=== PATIENT | male | born 1945 | race Caucasian/White ===

== ENCOUNTER → 2017-01-10 | Day surgery (SDC) | payer BC ==
[~2017-01-10] VITALS: Ht 174 cm; Wt 88.5 kg
[~2017-01-10] MED LIST: *HYDROmorphone PF 1 MG VIAL PERIprocedural Use ONLY ONE; *morphine SULFATE 8 MG/ML PERIprocedure ONLY ONE; ACETAMINOPHEN 1000 MG/100 ML VIAL IV ONE; ACETAMINOPHEN/HYDROcodone 325 MG/10 MG TAB PO PRN; ALLO300T2 PO; CHLORHEXIDINE GLUCONATE 2 % 1 PACK (2 CLOTHS) TOPICAL PRN; DO NOT ADM ANY ANTICOAGULANT DRUGS PRN; FAMOTIDINE 20 MG/2 ML VIAL ONE; GENTAMICIN SULFATE 80 MG/2 ML VIAL ONE; HYDR-3366 PO; INSULIN HUMAN REGULAR 1,000 UNITS/10 ML VIAL SQ PRN; JALYCAP PO; LACTATED RINGER'S 1000 ML INJ 1,000 ML IV ONE; LACTATED RINGER'S 1000 ML IV PRN; METOPROLOL TARTRATE 25 MG TAB PO PRN; MIDAZOLAM HCL 2 MG/2 ML VIAL ONE; MORPHINE SULFATE 4 MG/ML INJ IV PUSH PRN; ONDANSETRON HCL 4 MG/2 ML VIAL IV PUSH ONE; ONDANSETRON HCL 4 MG/2 ML VIAL IVP PRN; PHENYLEPH/NS 1000 MCG/10 ML SYR IV ONE; POVIDONE IODINE 5% (ANTISEPSIS KIT) 4 APPLICATIONS EACH NARE PRN; POVIDONE IODINE 7.5% SCRUB 118 ML BOTTLE TOPICAL SCH; PROPOFOL 200 MG/20 ML AMP IV ONE; Post-op Orders (for Pharmacy) MISC XX ONE; SODIUM CHLOR 0.9% 250 ML INJ 250 ML ONE; SODIUM CHLORID 0.9% 500 ML IV PRN; VANCOMYCIN 1000 MG/NS 250 ML (for <70 kg) IV SCH; VANCOMYCIN HCL 1000 MG VIAL ONE; ZANA4CAP PO; ceFAZolin 2 GM PREMIX 50 ML IV SCH; ePHEDrine/NS 25 MG/5 ML SYR IV ONE; fentaNYL CITRATE 250 MCG/5 ML AMP ONE
[2017-01-10 06:02] VITALS: BP 153/89; PULSE 79; RESP 18; TEMP 98.4; O2SAT 95
--- NOTE | 2017-01-10 09:35 | PD.OP ---
cc: Wilmar Doe MD Operative Report Date of Surgery: Jan 10, 2017 Preoperative Diagnosis: right midfoot fracture dislocation first through fifth tarsometatarsal joints, right fourth metatarsal fracture Postoperative Diagnosis: Procedure: Open reduction internal fixation right first and second tarsometatarsal joints Open reduction internal fixation right fourth metatarsal fracture Open reduction and pinning of right third and fifth tarsometatarsal joints Surgeon: Wilmar Doe Amr Physician(s): TROY Evans PA-C The surgical procedure was assisted by my physician real estate executive assistant. My P.A. presence was necessary throughout this case for the manipulation and positioning of the surgical extremity. My P.A. was assisting me throughout the duration of this procedure. The skill set of a physician real estate executive assistant was medically necessary to complete this procedure. During the surgical case the computer operations technician was working at the back table and the physician real estate executive assistant was directly assisting me. Operation and Findings: Patient was seen and evaluated in office and found to have displaced midfoot fracture dislocation. Informed consent was obtained after detailed discussion of the risk and benefits of surgery. Operative site was marked. Patient brought to operating room and given IV sedation and general anesthesia. The operative extremity was now prepped with alcohol followed by Hibiclens and draped in usual sterile fashion. IV antibiotics were administered prior to procedure. Time out procedure was now performed to confirm both the patient and procedure. Procedure began with a 3 inch incision over the dorsum of the right midfoot. Incision was centered between the first and second tarsometatarsal joints. Subcutaneous tissue was dissected with Bovie. The EHL tendon was identified. The EHL tendon was now retracted laterally to expose the first tarsometatarsal joint. Next the second tarsometatarsal joint was exposed. The neurovascular bundle was retracted medially. The foot was elevated and the tourniquet was now inflated. The second tarsometatarsal joint was now visualized. Attention was now turned towards reduction. The second tarsometatarsal joint was manipulated. The joint surface was cleaned with curettes. Using a fracture tenaculum the second metatarsal was reduced into anatomic alignment. A K wire was used to hold provisional fixation. The first tarsometatarsal joint was now manually held in anatomic alignment. A K wire was placed across this joint for additional temporary stabilization. Next attention was turned towards the third fourth and fifth tarsometatarsal joints. These joints were still dislocated. A second incision was made centered over the fourth tarsometatarsal joint. Tendons were retracted carefully. The third, fourth, and fifth tarsometatarsal joints were now visualized. There was a fracture at the base of the fourth metatarsal. The third and fourth tarsometatarsal joints were manually reduced. These keyed in anatomic alignment. The fifth tarsometatarsal joint reduced as well. At this point attention was turned towards pinning of the third and fifth tarsometatarsal joints. The joints were held in a reduced position. A K wire was placed at the distal end of the third metatarsal. The K wire was advanced up the metatarsal canal. K wire was now advanced into the lateral cuneiform. Additional K wires placed along the base of the fifth metatarsal and advanced into the cuboid. A second K wire was placed at the base of the fifth metatarsal and advanced through the base of the fourth metatarsal and into the lateral cuneiform to help stabilize the fourth tarsometatarsal joint. Next attention was turned towards the fourth metatarsal. The fracture was reduced. Articular surface was in anatomic alignment. Multiplanar fluoroscopy revealed excellent alignment. Fracture was held in position with a K wire. A 3.5 cortical lag screw was used to compress fracture fragment. Next attention was turned back to the first and second tarsometatarsal joints. These fractures were anatomic alignment. Multiplanar fluoroscopy revealed excellent alignment of these joints. A 3.5 cortical lag screw was now placed in a retrograde fashion from the first metatarsal into the medial cuneiforms. A countersink was used. Good compression was obtained. Using similar technique and additional lag screw was placed in a retrograde fashion from the second metatarsal into the middle cuneiform. A third screw was now placed from the medial cuneiform into the base of the second metatarsal. The K wires from the first and second metatarsals were now removed. Fluoroscopy confirmed excellent alignment of fracture. Incisions were thoroughly irrigated. Tourniquet was released. Hemostasis was obtained. Incisions were now closed with 3-0 Vicryl and 3-0 nylon. Jergens balls were now placed over the 3 K wires. These K wires were now bent and cut appropriately. Sterile dressings were applied with Xeroform, soft roll, and a well molded well-padded splint. Patient was awakened and transferred to recovery in stable condition. Wilmar Doe MD Jan 10, 2017 09:35
--- NOTE | 2017-01-10 09:37 | RADRPT ---
EXAM DATE/TIME: 01/10/2017 08:55 [facility] COMPARISON: FLUOROSCOPY PORTABLE UP TO 1HR, January 10, 2017, 0:00. INDICATIONS : Post-op ORIF right mid-foot fractures. MEDICAL HISTORY : None. SURGICAL HISTORY : None. ENCOUNTER: Initial ACUITY: 1 day PAIN SCORE: Non-responsive. LOCATION: Right Foot. FINDINGS: The examination demonstrates a total of 3 pins and 4 screws across the mid foot. The alignment of the fractures and the Lisfranc joint post fixation is excellent. CONCLUSION: 1. Excellent alignment of the fractures post fixation. Timothy Hussein MD on January 10, 2017 at 9:34 Board Certified Radiologist. This report was verified electronically.
[2017-01-10 13:38] VITALS: BP 129/76; PULSE 78; RESP 16; O2SAT 98
--- NOTE | 2017-01-10 16:26 | EKG ---
Date Performed: 01/10/2017 Time Performed: 06:18:12 PTAGE: 71 years EKG: Sinus rhythm WITH SINUS ARRHYTHMIA NONSPECIFIC T-WAVE ABNORMALITY BORDERLINE ECG NO PREVIOUS TRACING DOCTOR: Santi Mancia Interpretating Date/Time 01/10/2017 16:24:08
--- NOTE | 2017-02-23 17:35 | PD.ORT.PN ---
Subjective Subjective Remarks patient doing well status post open reduction with fixation of right Lisfranc fracture dislocation Objective Procedures right Lisfranc fracture dislocation status post open reduction and fixation and percutaneous pinning Assessment & Plan Assessment and Plan right Lisfranc fracture dislocation status post open reduction internal fixation and improved and is pending. POD #0 Nonweightbearing right lower extremity. Maintain splint at all times. Continue to elevate to decrease swelling. Patient demonstrates physical therapy that he is doing well and is safe with walker. Patient to be discharged home. Follow-up with Dr. Lopez or PA in 2 weeks Doc Figueroa Jr. Feb 23, 2017 17:35
== END | disposition home or self-care (01) ==
LOC: HSDC 05:26
PROVIDERS: ATTEND Orthopaedic Surgery Orthopaedic Trauma
DX: S93.324A Dislocation of tarsometatarsal joint of right foot, initial encounter (principal); M10.9 Gout, unspecified; W23.1XXA Caught, crushed, jammed, or pinched between stationary objects, initial encounter; Y93.19 Activity, other involving water and watercraft; Y92.832 Beach as the place of occurrence of the external cause; Z01.810 Encounter for preprocedural cardiovascular examination
CPT/HCPCS: 01480; 28485; 28645; 73630; 76000; 93005; 97163; G8987; G8988; J0131; J0690; J1170; J1580; J2250; J2270; J2370; J2405; J3010; J3370; J7050; J7120; 94150